=== PATIENT | male | born 1960 | race Caucasian/White ===

== ENCOUNTER → 2022-08-26 11:51 | Outpatient (CLI) | payer SELFPAY ==
--- NOTE | ~2022-08-26 | XR_ITS ---
EXAMINATION: XR lumbar spine 2-3V DATE: 08/26/2022 12:34 INDICATION: Spondylolysis, lumbar region. TECHNIQUE: 3 views of the lumbar spine were obtained. COMPARISON: Lumbar spine radiographs 12/21/2017, pelvis CT 12/01/15 FINDINGS: Bone alignment is normal. There are changes of posterior fusion procedure from L4 to S1 wit h pedicle screws. There are changes of anterior fusion procedure at L5-S1. There is mildly decreased disc height at L4-L5. 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 Partiall y visualized are electrodes in thoracic spine. There is a right hip arthroplasty. IMPRESSION: 1. Mild lumbar spondylosis. 2. Posterior fusion procedure from L4 to S1 and anterior fusion procedure at L5-S1. Reviewed, dictated and finalized at location A. IMPRESSION: 1. Mild lumbar spondylosis. 2. Posterior fusion procedure from L4 to S1 and anterior fusion procedure at L5 -S1.
== END ==
PROVIDERS: PCP Family Medicine; Visit Provider Nurse Practitioner Family
DX: M43.06 Spondylolysis, lumbar region (principal); M47.896 Other spondylosis, lumbar region; Z98.1 Arthrodesis status
CPT/HCPCS: 72100

== ENCOUNTER → 2022-12-13 14:19 | Outpatient (CLI) | payer MEDICARE, SELFPAY ==
--- NOTE | ~2022-12-13 | XR_ITS ---
EXAMINATION:XR cervical spine min 6V DATE: 12/13/2022 14:47 INDICATION: Anesthesia of the skin TECHNIQUE: AP, lateral in neutral, flexion, extension, lateral swimmers and odontoid views of the cer vical spine are provided. COMPARISON: None FINDINGS: Alignment is normal. There is no hypermobility with flexion or extension. The odontoid proc ess is intact. No fracture is identified. The vertebral body heights are maintained. There is moderat e loss of intervertebral disc space height at C6-7. There is multilevel severe facet and uncovertebra l joint osteoarthritis. Prevertebral soft tissues are normal. IMPRESSION: 1. Moderate cervical spondylosis without acute findings. Reviewed, dictated and finalized at location B.
== END ==
PROVIDERS: PCP Family Medicine; Visit Provider Family Medicine
DX: R20.0 Anesthesia of skin (principal); M47.892 Other spondylosis, cervical region
CPT/HCPCS: 72052

== ENCOUNTER 2023-11-23 10:23 | Outpatient (CLI) | payer MEDICARE, SELFPAY ==
--- NOTE | ~2023-11-23 | CT_ITS ---
EXAMINATION: CT sinus wo con DATE: 11/23/2023 10:35 INDICATION: Decrease smell sensation. TECHNIQUE: Computed tomography (CT) of the paranasal sinuses was performed without intravenous contra st. The dose-length product was 278.24 mGy-cm. Automated exposure control and iterative reconstructio n technique were employed. COMPARISON: None FINDINGS: Mild left maxillary sinus mucosal thickening. Ostiomeatal units are patent. No significant mucoperiosteal reaction. Mastoids are pneumatized. There is mild mucosal thickening of the ethmoid si nuses. Small bilateral bryon bullosa. Rightward nasal septal deviation. IMPRESSION: 1. Mild sinus disease. Reviewed, dictated and finalized at location B. IMPRESSION: 1. Mild sinus disease.
== END 2023-11-23 10:24 ==
LOC: MICIMG 10:23
PROVIDERS: PCP Family Medicine; Visit Provider Otolaryngology
DX: R43.8 Other disturbances of smell and taste (principal); J32.9 Chronic sinusitis, unspecified
CPT/HCPCS: 70486